=== PATIENT | male | born 1950 | race Caucasian/White ===

== ENCOUNTER 2018-05-01 14:19 | Emergency (ER) | payer MEDICARE, BC ==
[~2018-05-01 14:19] MED LIST: ALBU8.5H IH; AMOX-559 PO; ATOR20TA22 PO; ATOR40TA69 PO; FLUT10SP NS; GLUC-198 PO; IBUP200C74 PO; KET10 PO; LACT1CAP4 PO; LOR5/325 PO; LUTE20CA11 PO; MONT5TAB15 PO; MULT-820 PO; RANI-366 PO; TRIA15CR40 TP; UBID150C4 PO
[2018-05-01 14:24] VITALS: BP 112/88
--- NOTE | 2018-05-01 14:26 | ER Report ---
History and Physical Time Seen By MD: 14:26 Hx. of Stated Complaint: DROPPED OBJECT ON RIGHT TOE APPROX 5 HRS AGO - WILL NOT STOP BLEEDING. HPI/ROS CHIEF COMPLAINT: Toe injury HISTORY OF PRESENT ILLNESS: This is a 67-year-old male who presents to the emergency department for a right great toe injury. Patient states that at about 10:00 this morning he was changing an auger on his tractor fell off and landed on his right great toe with the blade hitting the toenail. Patient states he's not been able to get the bleeding to stop since then. Patient does have some bruising to the cuticle of the right great toe and bruising of the toe as well. Pain to the toe with palpation otherwise patient has no other complaints. No nausea or vomiting. No aches or chills. REVIEW OF SYSTEMS: Respiratory: No cough, no dyspnea. Cardiovascular: No chest pain, no palpitations. Gastrointestinal: No vomiting, no abdominal pain. Musculoskeletal: As above. Integumentary: As above. Allergies: Uncoded Allergies: ENVIRONMENTAL (Allergy, Intermediate, RUNNY NOSE, ITCHY EYES, ETC., 08/04/08 ) TREES, POLLEN, DUST, DANDER Home Meds Active Scripts Atorvastatin Calcium (ATORVASTATIN CALCIUM) 40 Mg Tablet, 1 TAB PO QDAY, #90 TAB 4 Refills Prov:BJ VARGAS MD 08/10/17 Discontinued Reported Medications Lutein (LUTEIN) 20 Mg Capsule, 20 MG PO DAILY, CAPSULE 09/07/17 Ranitidine Hcl (ZANTAC) 150 Mg Tablet, 150 MG PO BID, TAB 05/06/17 Triamcinolone Acetonide 0.1% Cr 15 Gm Tube (TRIAMCINOLONE ACETONIDE 0.1% CREAM) 15 Gm Cream..g., 15 GM TP BID, TUBE APPLTY TO AFFECTED AREAS BID 05/06/17 Ibuprofen (ADVIL) 200 Mg Capsule, 1 CAP PO DAILY, CAPSULE ONCE A DAY 3-4 X WEEK 05/06/17 Glucosa Cid 2KCL/Chondroitin Cid (Glucosamine & Chondroitin Cap) 1 Cap Capsule, 1 CAP PO DAILY, 0 Refills 05/13/11 Multivitamins (Multivitamin) 1 Tab Tablet, 1 TAB PO DAILY, 0 Refills 05/13/11 Ubidecarenone (Coq10) 150 Mg Capsule, 150 MG PO DAILY, 0 Refills 7/5/11 Discontinued Scripts Amoxicillin/Pot Clav 875-125 Mg Tab (AUGMENTIN 875-125 TABLET) 1 Each Tablet, 1 TAB PO Q12H for 7 Days, #14 TAB Prov:SAMBJ Kathleen MD 10/28/17 Past Medical/Surgical History Patient has a past medical and surgical history of atrial tachycardia, hypercholesterolemia, ventral hernia, anal fissure, chronic back pain, wears glasses and contacts, hard of hearing, cholecystectomy, multiple knee surgeries , back surgeries, tonsillectomy. Reviewed Nurses Notes: Yes Smoking Status: Never Smoker Constitutional Vital Sign - Last 24 Hours 05/01/18 14:24 Temp 98.5 Pulse 83 Resp 16 B/P (MAP) 112/88 Pulse Ox 93 O2 Delivery Room Air Physical Exam General Appearance: The patient is alert, has no immediate need for airway protection and no current signs of toxicity. Eyes: Pupils equal and round no injection. Respiratory: Chest is non tender, lungs are clear to auscultation. Cardiac: regular rate and rhythm. Gastrointestinal: Abdomen is soft and non tender, no masses, bowel sounds normal. Musculoskeletal: Neck: Neck is supple and non tender. Extremities have full range of motion and are non tender. Skin: Injury to the right great toenail and toe, bleeding controlled no obvious to the deformities or subungual hematomas. Contusion to the right great toe. DIFFERENTIAL DIAGNOSIS: After history and physical exam differential diagnosis was considered for contusion, subungual hematoma and toe fracture. Medical Decision Making EKG/Imaging Imaging Location: [facility] - [place] Patient: Bj Real : 1950 Visit/Account:[id number] [facility] FOOT 3 VIEW RIGHT Indication: Dropped a tractor blade on foot. Comparison: None Available Findings: 3 views of the right foot were obtained. No indication of acute fracture or dislocation. There is a small calcific density adjacent to the lateral aspect of the first MTP joint which appears to be from a chronic injury is appears to be more well corticated. There is also a small ossicle adjacent to the proximal navicular. No bony lesions, periosteal abnormality or degenerative changes. Soft tissues show no radiopaque foreign body. IMPRESSION: 1.No acute osseous abnormality of the right foot Report Dictated By: Rod Orellana at 05/01/2018 3:08 PM Report E-Signed By: Rod Orellana at 05/01/2018 3:14 PM [id number] ED Course/Re-evaluation ED Course The patient was admitted to room. A history and physical were obtained. Differential diagnoses were considered. An x-ray of the foot showing no acute osseous abnormalities of the great toe. The area surrounding the toenail was irrigated and cleaned, there is no subungual hematoma to drain. Patient did have bruising surrounding the toenail area the toenail will likely fall off. I did review the results with the patient. I did tell him that the toenail will likely fall off. Continue to monitor for signs of infection, I also instructed him to return to the emergency department for increased pressure on the toenail , or any other wound care concerned that he may have. Patient did express understanding. Patient had no other questions or concerns at this time and was discharged home. We did dress the wound with bacitracin and a tube gauze dressing. Patient was instructed to keep this on for approximately 24 hours if possible. Decision to Disposition Date: May 01, 2018 Decision to Disposition Time: 15:38 Depart Departure Latest Vital Signs Vital Signs Date Time Temp Pulse Resp B/P (MAP) Pulse Ox O2 Delivery O2 Flow Rate FiO2 05/01/18 14:24 98.5 83 16 112/88 93 Room Air Impression: Primary Impression: Injury of right great toe Condition: Improved Disposition: HOME OR SELF-CARE Referrals: SARA HE MD (PCP) Patient Instructions: Acute Wound Care (ED) Additional Instructions: Drink plenty of water. Get plenty of rest. Be sure to keep the wounds surrounding the toe clean and dry, apply antibiotic ointment and a bandage to the affected areas for the next week. Monitor for signs of infection such as increased redness, swelling drainage. If you notice any of these follow-up with your primary care provider or return to the emergency department. Take Tylenol or ibuprofen as needed for pain control. Return to the emergency department for any other concerns or worsening symptoms. It is very likely that the toenail will fall off. No hot tub or swimming for at least one week. Problem Qualifiers Primary Impression: Injury of right great toe Encounter type: initial encounter Qualified Codes: S99.921A - Unspecified injury of right foot, initial encounter RAEANN PHILLIPP- May 01, 2018 14:26
[2018-05-01] MEDS ORDERED: DIPHTH/TETANUS/ACEL. PERTUSSIS IM ONLY ONE (14:35)
--- NOTE | 2018-05-01 15:18 | RADIOLOGY IMAGING REPORT ---
FACILITY: [facility] PATIENT NAME: Bj Real : 1950 MR: [id number] V: [id number] EXAM DATE: ORDERING PHYSICIAN: RAEANN PHILLIP TECHNOLOGIST: Location: [facility] - [place] Patient: Bj Real : 1950 Visit/Account:[id number] Date of [facility]: 05/01/2018 FOOT 3 VIEW RIGHT Indication: Dropped a tractor blade on foot. Comparison: None Available Findings: 3 views of the right foot were obtained. No indication of acute fracture or dislocation. There is a small calcific density adjacent to the lat eral aspect of the first MTP joint which appears to be from a chronic injury is appears to be more we ll corticated. There is also a small ossicle adjacent to the proximal navicular. No bony lesions, per iosteal abnormality or degenerative changes. Soft tissues show no radiopaque foreign body. IMPRESSION: 1.No acute osseous abnormality of the right foot Report Dictated By: Rod Orellana at 05/01/2018 3:08 PM Report E-Signed By: Rod Orellana at 05/01/2018 3:14 PM WSN:[id number]
== END 2018-05-01 16:01 | disposition home or self-care (01) ==
LOC: ER 14:23
DX: S97.111A Crushing injury of right great toe, initial encounter (principal); W20.8XXA Other cause of strike by thrown, projected or falling object, initial encounter
CPT/HCPCS: 90471; 90715; 99283